=== PATIENT | male | born 1960 | race Caucasian/White ===

== ENCOUNTER 2023-12-05 11:37 | Inpatient (IN) | payer OTHER ==
[2023-12-05] MEDS ORDERED: Dexamethasone 10 MG/ML VIAL ONE (11:56)
[2023-12-05] MEDS ORDERED: Magnesium 2 GM/50 ML BAG (IN WATER) ONE (11:56)
[2023-12-05 12:12] LABS: #Basophils 0.03 10x3/uL (0.0-0.2); %Basophils 0.4 % (0.0-1.0); %Eosinophils 3.2 % (0.0-10.0); %Lymphocytes 19.5 % (21.0-51.0); %Monocytes 9.3 % (0.0-10.0); %Neutrophils 67.2 % (42.0-75.0); Hematocrit 47.3 % (42.0-52.0); Hemoglobin 15.4 g/dL (14.0-18.0); Mean Corpuscular HGB CONC 32.6 g/dL (32.0-36.0); Mean Corpuscular Hemoglobin 31.5 pg (27.0-31.0); Mean Corpuscular Volume 96.7 fL (78.0-98.0); Mean Platelet Volume 10.2 fL (7.4-10.4); Platelet Count 194 10x3/uL (130-400); RBC Distribution Width 13.2 % (11.5-14.5); Red Blood Cell (RBC) Count 4.89 mill/uL (4.70-6.10)
[2023-12-05 12:22] LABS: Actual Bicarbonate (HCO3a) 28.2 mEq/L (22-28); Analyzer IN Cardio ER; Base Excess (BEa) 2.4 mEq/L (-2.0 to +3.0); CO2 Tension 48.3 mmHg (35.0-45.0); Calcium, Ionized (arterial) 1.16 mmol/L (1.12-1.30); Hematocrit-ABG 42 % (42.0-52.0); Hemoglobin (Hb) 14.3 g/dL (14.0-18.0); O2 Tension (PaO2), arterial 486.2 mmHg (> 80.0); Potassium - ABG Lab 3.63 mmol/L (3.70-5.30); pH, Arterial 7.384 (7.35-7.45)
[2023-12-05 12:25] LABS: Troponin I Less than 0.010 ng/mL (< 0.028)
[2023-12-05 12:27] LABS: ALV-art Gradient 166.425 mmHg (0-20); Puncture Site LRA
[2023-12-05 12:33] LABS: ALT (SGPT) 30 U/L (8-55); AST (SGOT) 24 U/L (5-34); Albumin 3.6 g/dL (3.4-4.8); Alkaline Phosphatase 137 U/L (40-110); Anion Gap 12 mmol/L (10-20); BUN (Urea Nitrogen) 22 mg/dL (8.4-25.7); Bilirubin, Total 0.6 mg/dL (0.2-1.2); Calc. Creatinine Clearance 0 mL/min (70-130); Calcium 9.3 mg/dL (7.8-10.44); Carbon Dioxide 28 mmol/L (23-31); Chloride 108 mmol/L (98-107); Estimated GFR 66; Globulin 3.5 g/dL (2.4-3.5); Glucose 185 mg/dL (80-115); Lipase 23 U/L (8-78); Potassium 3.9 mmol/L (3.5-5.1); Protein, Total 7.1 g/dL (5.8-8.1); Sodium 144 mmol/L (136-145)
[2023-12-05] MEDS ORDERED: Furosemide 40 MG (4 mL) VIAL ONE (12:44)
[2023-12-05 13:08] LABS: Influenza A by NAA Not Detected (NotDetected); Influenza B by NAA Not Detected (NotDetected); SARS-CoV-2 NAA Rapid Test Not Detected (NotDetected)
[2023-12-05] MEDS ORDERED: Ipratropium/Albuterol 3 ML NEB ONE (13:42)
[2023-12-05] MEDS ORDERED: Albuterol 2.5 MG (0.5 mL) NEB ONE (13:42)
[2023-12-05] MEDS ORDERED: LevoFLOXacin 750 mg/D5W 150 ml Premix Bag ONE (14:11)
[2023-12-05] MEDS ORDERED: Acetaminophen 650 MG Suppository PR PRN (14:27)
[2023-12-05] MEDS ORDERED: Morphine 4 MG/ML VIAL SLOW IVP PRN (14:27)
[2023-12-05] MEDS ORDERED: Ondansetron PF 4 MG/2 ML Vial IVP PRN (14:27)
[2023-12-05] MEDS ORDERED: Ondansetron ODT 4 MG TAB PO PRN (14:27)
[2023-12-05] MEDS ORDERED: Morphine 2 MG/ML VIAL SLOW IVP PRN (14:27)
[2023-12-05] MEDS ORDERED: Acetaminophen 325 MG TAB PO PRN (14:27)
[2023-12-05 14:43] LABS: Bacteria/HPF None Seen HPF (None Seen); Bilirubin Negative (Negative); Blood, Urine Negative (Negative); CAUTI Indications for Culture Dysuria,urgency,freq; Clarity Clear (Clear); Glucose, Urine (Dipstick) Normal (Negative); Ketone, Urine Negative (Negative); Leukocyte Negative Leu/uL (Negative); Nitrite Negative (Negative); Protein, Urine (Dipstick) 100 mg/dL (Neg-Trace); RBC/HPF 0-3 HPF (0-3); Specific Gravity, Urine 1.008 (1.002-1.036); Squamous Epithelial None Seen HPF (0-3); Urobilinogen Normal mg/dL (Less than 2); WBC/HPF 0-3 HPF (0-3)
[2023-12-05 14:45] LABS: Urine Culture Reflex No No
[2023-12-05] MEDS ORDERED: Ipratropium/Albuterol 3 ML NEB NEB PRN (14:58)
[2023-12-05 16:58] VITALS: BMI 55.8
[2023-12-05 20:02] LABS: Troponin I Less than 0.010 ng/mL (< 0.028)
[2023-12-05] MEDS ORDERED: Insulin Lispro 100 UNIT/ML 10 ML VIAL SC PRN ×2 (20:22)
[2023-12-05] MEDS ORDERED: Glucagon 1 MG/ML KIT IM PRN (20:22)
[2023-12-05] MEDS ORDERED: Dextrose 50% Abboject 50 ML SYRINGE SLOW IVP PRN (20:22)
[2023-12-05] MEDS ORDERED: Dextrose 5% in Water 1,000 ML IV PRN (20:22)
[2023-12-05] MEDS ORDERED: Lisinopril 20 MG TAB PO SCH (21:00)
[2023-12-05] MEDS ORDERED: Famotidine 20 MG TAB PO SCH (21:00)
[2023-12-05] MEDS ORDERED: busPIRone HCl 10 MG TAB PO SCH (21:00)
[2023-12-05] MEDS ORDERED: Atorvastatin Calcium 40 MG TAB PO SCH (21:00)
[2023-12-05 22:36] LABS: Troponin I 0.012 ng/mL (< 0.028)
[2023-12-06 06:08] LABS: #Basophils Less than 0.03 10x3/uL (0.0-0.2); #Eosinphils Less than 0.03 10x3/uL (0.0-0.7); %Basophils 0.1 % (0.0-1.0); %Lymphocytes 5.5 % (21.0-51.0); %Monocytes 3.1 % (0.0-10.0); %Neutrophils 90.9 % (42.0-75.0); Hematocrit 45.5 % (42.0-52.0); Hemoglobin 14.8 g/dL (14.0-18.0); Mean Corpuscular HGB CONC 32.5 g/dL (32.0-36.0); Mean Corpuscular Hemoglobin 31.2 pg (27.0-31.0); Mean Corpuscular Volume 95.8 fL (78.0-98.0); Mean Platelet Volume 10.2 fL (7.4-10.4); Platelet Count 229 10x3/uL (130-400); RBC Distribution Width 13.2 % (11.5-14.5); Red Blood Cell (RBC) Count 4.75 mill/uL (4.70-6.10)
[2023-12-06 06:26] LABS: Anion Gap 13 mmol/L (10-20); BUN (Urea Nitrogen) 24 mg/dL (8.4-25.7); Calc. Creatinine Clearance 132 mL/min (70-130); Calcium 9.6 mg/dL (7.8-10.44); Carbon Dioxide 25 mmol/L (23-31); Chloride 107 mmol/L (98-107); Estimated GFR 73; Glucose 178 mg/dL (80-115); Potassium 3.9 mmol/L (3.5-5.1); Sodium 141 mmol/L (136-145)
[2023-12-06] MEDS: Furosemide 100 MG (10 mL) VIAL SLOW IVP SCH (06:31)
[2023-12-06 07:49] VITALS: TEMP 97.5
[2023-12-06] MEDS ORDERED: Aspirin 81 mg Enteric Coated Tablet PO SCH (09:00)
[2023-12-06] MEDS ORDERED: FLUoxetine HCl 20 MG CAP PO SCH (09:00)
[2023-12-06] MEDS: Pantoprazole DR 40 MG TAB PO SCH (09:10)
[2023-12-06] MEDS: Aspirin 81 mg Enteric Coated Tablet PO SCH (09:10)
[2023-12-06] MEDS: Carvedilol 25 MG TAB PO SCH (09:10)
[2023-12-06] MEDS: Amlodipine 5 MG TAB PO SCH (09:10)
[2023-12-06] MEDS: Enoxaparin 40 MG (0.4 mL) SYRINGE SC SCH (09:11)
[2023-12-06] MEDS: methylPREDNISolone Sod Succ/PF 125 MG/2 ML VIAL IVP SCH (09:11)
[2023-12-06] MEDS: Losartan 25 MG TAB PO SCH (11:01)
[2023-12-06] MEDS ORDERED: LevoFLOXacin 750 MG TAB PO SCH (14:00)
[2023-12-07] MEDS ORDERED: Losartan 25 MG TAB PO SCH (09:00)
== END 2023-12-06 13:00 | disposition home or self-care (01) | DRG 291 ==
LOC: SUATTDRO 11:37 → ERS 11:37 → IMCU/EMU 16:26
PROVIDERS: ADMIT Family Medicine; ATTEND Family Medicine
PROC: 4A033R1 Measurement of Arterial Saturation, Peripheral, Percutaneous Approach (ICD-10-PCS; principal; 2023-12-05)
DX: I11.0 Hypertensive heart disease with heart failure (principal); J96.01 Acute respiratory failure with hypoxia; J44.1 Chronic obstructive pulmonary disease with (acute) exacerbation; I16.0 Hypertensive urgency; I50.9 Heart failure, unspecified; Z79.899 Other long term (current) drug therapy; F41.9 Anxiety disorder, unspecified; Z79.01 Long term (current) use of anticoagulants
CPT/HCPCS: 36415; 36416; 36600; 71045; 80048; 80053; 81001; 82805; 83605; 83690; 83880; 84484; 85025; 87040; 93005; 94640; 94660; J1100; J1650; J1940; J1956; J2930; J3475; J7611; J7620